=== PATIENT | male | born 1955 | race Hispanic/Latino ===

== ENCOUNTER 2018-04-03 10:08 | Inpatient (IN) | payer OTHER ==
[2018-04-03] VITALS (10 sets, daily range): BP systolic 91–113; BP diastolic 52–68
[~2018-04-03] VITALS: Ht 167.6 cm; Wt 82.2 kg
[2018-04-03] MEDS ORDERED: LACTATED RINGERS 1000ML 2,000 ML IV ONE (10:21)
[2018-04-03] MEDS ORDERED: ONDANSETRON HCL 4 MG/2 ML VIAL ONE (10:21)
[2018-04-03 10:23] LABS: BASOPHILS % (AUTO) 0.4 % (0.0-5.0); EOSINOPHILS % (AUTO) 0.3 % (0.0-8.0); HEMATOCRIT 36.9 % (42-54); MEAN CORPUSCULAR HGB CONC 35.2 g/dL (32.0-36.0); MEAN CORPUSCULAR VOLUME 90.8 fL (79-99); MONOCYTES % (AUTO) 4.9 % (3.0-13.0); NEUTROPHILS % (AUTO) 78.4 % (40.0-77.0); PLATELET COUNT (AUTO) 89 K/uL (130-400); RED BLOOD CELL COUNT(AUTO) 4.07 MIL/uL (4.50-6.20); RED CELL DISTRIBUTION WIDTH 13.1 % (11.0-15.5); WHITE BLOOD COUNT (AUTO) 9.1 K/uL (4.8-10.8)
[2018-04-03 10:57] LABS: CREATININE 1.7 mg/dL (0.5-1.5); POTASSIUM 3.8 mmol/L (3.5-5.1)
[2018-04-03 11:02] LABS: ALBUMIN 2.5 g/dL (3.5-5.0); BILIRUBIN,TOTAL 0.9 mg/dL (0.2-1.0); TOTAL PROTEIN, SERUM 6.1 g/dL (6.0-8.3)
[2018-04-03] MEDS ORDERED: LEVOFLOXACIN 750 MG/D5W 150 ML 150 ML ONE (11:25)
[2018-04-03] MEDS: SODIUM CHLORIDE 0.9% 1000ML 1,000 ML IV SCH ×2 (11:52→20:20)
[2018-04-03] MEDS ORDERED: ACETAMINOPHEN 325 MG TAB PO PRN (12:00)
[2018-04-03] MEDS ORDERED: HYDRALAZINE HCL 20 MG/ML VIAL IV PRN (12:00)
[2018-04-03] MEDS ORDERED: SODIUM CHLORIDE 0.9% 1000ML 1,000 ML IV SCH (12:00)
[2018-04-03] MEDS ORDERED: ONDANSETRON HCL 4 MG/2 ML VIAL IV PRN (12:00)
[2018-04-03] MEDS ORDERED: SODIUM CHLORIDE 0.9% 1000ML 1,000 ML IV ONE ×3 (13:30→16:23)
[2018-04-03] MEDS ORDERED: ENOXAPARIN SODIUM 40 MG/0.4 ML SYRINGE SQ ONE (13:30)
[2018-04-03] MEDS ORDERED: FAMOTIDINE/PF 20 MG/2 ML VIAL IV ONE (13:31)
[2018-04-03] MEDS ORDERED: ACETAMINOPHEN 325 MG TAB ONE (13:43)
[2018-04-03] MEDS: LEVOFLOXACIN 500 MG/D5W 100 ML 100 ML IV SCH (16:15)
[2018-04-03] MEDS ORDERED: CALDOLOR 800MG+NS 250ML 250 ML IV PRN (16:15)
[2018-04-03] MEDS ORDERED: METRONIDAZOLE 500MG/100ML BAG 100 ML ONE (16:22)
[2018-04-03] MEDS ORDERED: NOREPINEPHRINE BITARTRATE 1 MG/1 ML ML IV ONE (17:44)
[2018-04-03 19:07] LABS: BILIRUBIN,URINE Small (NEGATIVE); COLOR,URINE Dark Yellow (YELLOW); GLUCOSE, URINE (UA) Negative (NEGATIVE); KETONES,URINE Trace mg/dL (NEGATIVE); LEUKOCYTE ESTERASE ,URINE Negative (NEGATIVE); NITRATE,URINE Negative (NEGATIVE); OCCULT BLOOD,URINE Negative (NEGATIVE); PH,URINE 5.5 (5.0-8.0); PROTEIN,URINE POS 2+ (NEGATIVE)
[2018-04-03 19:15] LABS: APPEARANCE,URINE SLIGHTLY CLOUDY (CLEAR)
[2018-04-03 19:18] LABS: RBC,URINE 0-1 /HPF (0-1)
[2018-04-03 19:19] LABS: BACTERIA,URINE Few /HPF (None Seen)
[2018-04-03 19:23] LABS: SQUAMOUS EPITHELIAL CELL,UR Few /HPF (0-2)
[2018-04-03 19:50] LABS: ABG BASE EXCESS -5.1 mmol/L (-2.0-3.0); ABG HCO3 17.5 mmol/L (21.0-28.0); ABG OXYGEN SATURATION 97.1 % (95.0-99.0); ABG PCO2 27 mmHg (35-48)
[2018-04-03] MEDS: OSELTAMIVIR PHOSPHATE 75 MG CAP PO SCH (20:20)
[2018-04-03] MEDS: FAMOTIDINE/PF 20 MG/2 ML VIAL IV SCH (20:20)
[2018-04-03] MEDS: IBUPROFEN 400 MG TABLET PO SCH (20:21)
[2018-04-03] MEDS ORDERED: SODIUM BICARB 50MEQ 50ML VIAL IV ONE (21:00)
[2018-04-03] MEDS ORDERED: NOREPINEPHRINE 4MG/NS 250ML 250 ML IV PRN (21:30)
[2018-04-03] MEDS: METRONIDAZOLE 500MG/100ML BAG 100 ML IV SCH (22:12)
[2018-04-04] VITALS (25 sets, daily range): BP systolic 88–113; BP diastolic 54–80
[2018-04-04] MEDS: IBUPROFEN 400 MG TABLET PO SCH ×4 (01:37→20:41)
[2018-04-04] MEDS: SODIUM CHLORIDE 0.9% 1000ML 1,000 ML IV SCH ×4 (02:21→20:41)
[2018-04-04 03:43] LABS: HEMATOCRIT 36.8 % (42-54); MEAN CORPUSCULAR HEMOGLOBIN 31.2 pg (27.0-33.0); MEAN CORPUSCULAR HGB CONC 34.4 g/dL (32.0-36.0); MEAN CORPUSCULAR VOLUME 90.6 fL (79-99); NUCLEATED RED BLOOD CELLS 0.1 % (0.0-0.19); PLATELET COUNT (AUTO) 73 K/uL (130-400); RED BLOOD CELL COUNT(AUTO) 4.06 MIL/uL (4.50-6.20); RED CELL DISTRIBUTION WIDTH 13.4 % (11.0-15.5); WHITE BLOOD COUNT (AUTO) 8.9 K/uL (4.8-10.8)
[2018-04-04 03:56] LABS: INR 1.09 (0.85-1.15); PARTIAL THROMBOPLASTIN TIME 36.9 SEC (26.3-35.5); PROTHROMBIN TIME 11.4 SEC (9.6-11.6)
[2018-04-04 03:57] LABS: ABG BASE EXCESS -2.4 mmol/L (-2.0-3.0); ABG HCO3 20.6 mmol/L (21.0-28.0); ABG OXYGEN SATURATION 96.5 % (95.0-99.0); ABG PCO2 31 mmHg (35-48)
[2018-04-04 04:02] LABS: ALBUMIN 1.9 g/dL (3.5-5.0); CREATININE 1.1 mg/dL (0.5-1.5); CRP QUANTITATIVE 131.6 mg/L (0.00-9.0); MAGNESIUM 2.1 mg/dL (1.80-2.40); PHOSPHORUS 2.6 mg/dL (2.5-4.9); POTASSIUM 3.3 mmol/L (3.5-5.1)
[2018-04-04] MEDS: METRONIDAZOLE 500MG/100ML BAG 100 ML IV SCH (05:06)
[2018-04-04] MEDS ORDERED: COMPOUND IV MISC 1 EACH IVSOLN MISC PRN (08:00)
[2018-04-04] MEDS ORDERED: POTASSIUM CHLORIDE 20 MEQ ERTAB PO ONE ×4 (08:45→12:00)
[2018-04-04] MEDS: ENOXAPARIN SODIUM 40 MG/0.4 ML SYRINGE SQ SCH (09:14)
[2018-04-04] MEDS: OSELTAMIVIR PHOSPHATE 75 MG CAP PO SCH ×2 (09:15→20:41)
[2018-04-04] MEDS: FAMOTIDINE/PF 20 MG/2 ML VIAL IV SCH ×2 (09:15→20:41)
[2018-04-04] MEDS: IRON SUCROSE COMPLEX 100 MG in SODIUM CHLORIDE 0.9% 50 ML IV SCH (09:17)
[2018-04-04] MEDS: DOXYCYCLINE HYCLATE 100 MG TABLET PO SCH ×2 (11:47→20:41)
[2018-04-04] MEDS: LEVOFLOXACIN 500 MG/D5W 100 ML 100 ML IV SCH (16:52)
[2018-04-05] VITALS (18 sets, daily range): BP systolic 90–129; BP diastolic 46–75
[2018-04-05] MEDS: IBUPROFEN 400 MG TABLET PO SCH ×4 (01:42→21:15)
[2018-04-05 03:51] LABS: HEMATOCRIT 35.5 % (42-54); MEAN CORPUSCULAR HEMOGLOBIN 31.3 pg (27.0-33.0); MEAN CORPUSCULAR HGB CONC 34.6 g/dL (32.0-36.0); MEAN CORPUSCULAR VOLUME 90.4 fL (79-99); PLATELET COUNT (AUTO) 77 K/uL (130-400); RED BLOOD CELL COUNT(AUTO) 3.93 MIL/uL (4.50-6.20); RED CELL DISTRIBUTION WIDTH 13.8 % (11.0-15.5); WHITE BLOOD COUNT (AUTO) 10.7 K/uL (4.8-10.8)
[2018-04-05 04:07] LABS: ALBUMIN 1.7 g/dL (3.5-5.0); BILIRUBIN,TOTAL 1.1 mg/dL (0.2-1.0); MAGNESIUM 1.7 mg/dL (1.80-2.40); PHOSPHORUS 1.7 mg/dL (2.5-4.9); POTASSIUM 4.1 mmol/L (3.5-5.1); TOTAL PROTEIN, SERUM 4.6 g/dL (6.0-8.3)
[2018-04-05] MEDS: SODIUM CHLORIDE 0.9% 1000ML 1,000 ML IV SCH (04:14)
[2018-04-05] MEDS ORDERED: MAGNESIUM 2GM PREMIX 50ML 50 ML IV SCH (08:15)
[2018-04-05] MEDS: FAMOTIDINE/PF 20 MG/2 ML VIAL IV SCH ×2 (08:21→21:15)
[2018-04-05] MEDS: OSELTAMIVIR PHOSPHATE 75 MG CAP PO SCH ×2 (08:21→21:15)
[2018-04-05] MEDS: DOXYCYCLINE HYCLATE 100 MG TABLET PO SCH ×2 (08:22→21:15)
[2018-04-05] MEDS: ENOXAPARIN SODIUM 40 MG/0.4 ML SYRINGE SQ SCH (08:22)
[2018-04-05] MEDS: IRON SUCROSE COMPLEX 100 MG in SODIUM CHLORIDE 0.9% 50 ML IV SCH (08:22)
[2018-04-05] MEDS: NEUTRA-PHOS PACKET 1 EACH PO SCH ×4 (08:34→23:50)
[2018-04-05] MEDS: LEVOFLOXACIN 500 MG/D5W 100 ML 100 ML IV SCH (16:36)
[2018-04-06] MEDS: IBUPROFEN 400 MG TABLET PO SCH ×4 (03:16→23:41)
[2018-04-06 04:00] VITALS: BP 99/62
[2018-04-06 04:30] LABS: ALBUMIN 1.8 g/dL (3.5-5.0); BILIRUBIN,TOTAL 1.1 mg/dL (0.2-1.0); CREATININE 0.9 mg/dL (0.5-1.5); MAGNESIUM 1.9 mg/dL (1.80-2.40); PHOSPHORUS 2.5 mg/dL (2.5-4.9); POTASSIUM 3.9 mmol/L (3.5-5.1); TOTAL PROTEIN, SERUM 4.9 g/dL (6.0-8.3)
[2018-04-06 04:32] LABS: HEMATOCRIT 34.3 % (42-54); MEAN CORPUSCULAR HEMOGLOBIN 32.1 pg (27.0-33.0); MEAN CORPUSCULAR HGB CONC 35.4 g/dL (32.0-36.0); MEAN CORPUSCULAR VOLUME 90.7 fL (79-99); PLATELET COUNT (AUTO) 140 K/uL (130-400); RED BLOOD CELL COUNT(AUTO) 3.78 MIL/uL (4.50-6.20); RED CELL DISTRIBUTION WIDTH 13.7 % (11.0-15.5); WHITE BLOOD COUNT (AUTO) 11.2 K/uL (4.8-10.8)
[2018-04-06 07:55] VITALS: BP 121/66
[2018-04-06] MEDS: DOXYCYCLINE HYCLATE 100 MG TABLET PO SCH ×2 (08:20→23:41)
[2018-04-06] MEDS: OSELTAMIVIR PHOSPHATE 75 MG CAP PO SCH ×2 (08:20→23:42)
[2018-04-06] MEDS: FAMOTIDINE/PF 20 MG/2 ML VIAL IV SCH ×2 (08:21→23:41)
[2018-04-06] MEDS: NEUTRA-PHOS PACKET 1 EACH PO SCH ×4 (08:21→23:41)
[2018-04-06 11:32] VITALS: BP 106/60
[2018-04-06] MEDS: IRON SUCROSE COMPLEX 100 MG in SODIUM CHLORIDE 0.9% 50 ML IV SCH (13:18)
[2018-04-06 16:50] VITALS: BP 122/65
[2018-04-06 19:35] VITALS: BP 122/82
[2018-04-06 23:21] VITALS: BP 131/68
[2018-04-07] MEDS: IBUPROFEN 400 MG TABLET PO SCH ×2 (02:31→09:03)
[2018-04-07 03:40] VITALS: BP 136/81
[2018-04-07 04:02] LABS: BASOPHILS % (AUTO) 1.3 % (0.0-5.0); EOSINOPHILS % (AUTO) 0.6 % (0.0-8.0); HEMATOCRIT 32.9 % (42-54); LYMPHOCYTES % (AUTO) 45.6 % (21.0-51.0); MEAN CORPUSCULAR HEMOGLOBIN 30.8 pg (27.0-33.0); MEAN CORPUSCULAR HGB CONC 34.3 g/dL (32.0-36.0); MONOCYTES % (AUTO) 6.9 % (3.0-13.0); NEUTROPHILS % (AUTO) 45.6 % (40.0-77.0); NUCLEATED RED BLOOD CELLS 0.1 % (0.0-0.19); PLATELET COUNT (AUTO) 176 K/uL (130-400); RED BLOOD CELL COUNT(AUTO) 3.65 MIL/uL (4.50-6.20); RED CELL DISTRIBUTION WIDTH 13.7 % (11.0-15.5); WHITE BLOOD COUNT (AUTO) 9.6 K/uL (4.8-10.8)
[2018-04-07 04:21] LABS: CREATININE 0.9 mg/dL (0.5-1.5)
[2018-04-07] MEDS ORDERED: PERMETHRIN CREAM 5% 60GM TUBE TP SCH (07:15)
[2018-04-07 08:12] VITALS: BP 126/76
[2018-04-07] MEDS: FAMOTIDINE/PF 20 MG/2 ML VIAL IV SCH (09:00)
[2018-04-07] MEDS: OSELTAMIVIR PHOSPHATE 75 MG CAP PO SCH (09:00)
[2018-04-07] MEDS: DOXYCYCLINE HYCLATE 100 MG TABLET PO SCH (09:00)
[2018-04-07 11:59] VITALS: BP 123/76
[2018-04-07] MEDS ORDERED: IBUPROFEN 400 MG TABLET PO PRN (12:15)
[2018-04-07 16:32] VITALS: BP 132/73
== END 2018-04-07 18:16 | disposition home or self-care (01) | DRG 871 ==
LOC: EDH 10:08 → OBSVTOIN 10:09 → EDHIP 10:09 → 2CH 18:56 → 4AH 04-05 12:10
PROVIDERS: ADMIT Internal Medicine; ATTEND Internal Medicine
DX: A41.9 Sepsis, unspecified organism (principal); R65.21 Severe sepsis with septic shock; N17.0 Acute kidney failure with tubular necrosis; E44.0 Moderate protein-calorie malnutrition; A09 Infectious gastroenteritis and colitis, unspecified; E86.0 Dehydration; E86.1 Hypovolemia; E87.6 Hypokalemia; I10 Essential (primary) hypertension; D50.9 Iron deficiency anemia, unspecified; D69.6 Thrombocytopenia, unspecified; E83.39 Other disorders of phosphorus metabolism; E83.42 Hypomagnesemia; Z82.49 Family history of ischemic heart disease and other diseases of the circulatory system; Z83.3 Family history of diabetes mellitus; Z68.29 Body mass index [BMI] 29.0-29.9, adult
CPT/HCPCS: 36415; 36600; 71045; 80048; 80053; 81001; 82803; 83036; 83540; 83550; 83605; 83735; 84100; 84443; 85025; 85027; 85610; 85730; 86140; 86757; 87088; 87804; 92610; 93005; G0378; J1650; J1741; J1756; J1956; J2405; J3475; J3490; J7030; J7120